=== PATIENT | female | born 1985 | race Caucasian/White ===

== ENCOUNTER 2018-11-21 06:48 | Emergency (ER) | payer OTHER ==
[~2018-11-21] VITALS: Ht 162.6 cm; Wt 102.3 kg
[~2018-11-21 06:48] MED LIST: CEPHALEXIN500 MG PO; FERR SULFATE325 MG PO; FERRAPLUS 90 PO; IBUPROFEN600 MG PO; IRON325 M1 PO; KEFLEX250 MG PO; KEFLEX500 MG PO; VITA-NATAL PO
[2018-11-21 06:50] VITALS: BP 117/90
== END 2018-11-21 07:30 ==
LOC: ED 06:48
DX: O42.92 Full-term premature rupture of membranes, unspecified as to length of time between rupture and onset of labor (principal); Z3A.38 38 weeks gestation of pregnancy

== ENCOUNTER 2019-12-01 | Emergency (ER) | payer OTHER ==
[2019-12-01] MEDS ORDERED: CLARITHROMYCIN500 MG PO (08:09)
[2019-12-01] MEDS ORDERED: TESSALON PER100 MG PO (08:09)
[2019-12-01] MEDS ORDERED: ROBITUSSIN AC10 ML PO (08:32)
[2019-12-01] MEDS ORDERED: ZPAK PO (08:32)
== END 2019-12-01 08:40 | disposition home or self-care (01) ==
DX: J20.9 Acute bronchitis, unspecified (principal)

== ENCOUNTER 2021-03-01 10:10 | Emergency (ER) | payer OTHER ==
[~2021-03-01] VITALS: Ht 162.6 cm; Wt 73.0 kg
[~2021-03-01 10:10] MED LIST changes: +CLARITHROMYCIN500 MG PO; +ROBITUSSIN AC10 ML PO; +TESSALON PER100 MG PO; +ZPAK PO
[2021-03-01 10:53] LABS: URINE BILIRUBIN - DIPSTICK NEGATIVE (NEGATIVE); URINE BLOOD DIPSTICK LARGE (NEGATIVE); URINE GLUCOSE - DIPSTICK NEGATIVE (NEGATIVE); URINE KETONE NEGATIVE (NEGATIVE); URINE LEUK ESTERASE SMALL (Negative); URINE NITRITE - DIPSTICK NEGATIVE (Negative); URINE PROTEIN - DIPSTICK TRACE mg/dL (NEG-TRACE); URINE SPECIFIC GRAVITY >=1.030; URINE UROBILINOGEN - DIPSTICK 0.2 E.U./dL (0.2)
[2021-03-01 10:54] LABS: URINE BACTERIA FEW hpf; URINE CLARITY HAZY; URINE COLOR DK. YELLOW; URINE EPITHELIAL CELLS FEW EPI/hpf (0-FEW); URINE RBC 25-50 RBC/hpf (0-5)
[2021-03-01 14:00] VITALS: BP 103/57
== END 2021-03-01 14:00 | disposition left against medical advice (07) | DRG 833 ==
LOC: ED 10:10
PROVIDERS: Emergency Medicine
DX: O46.90 Antepartum hemorrhage, unspecified, unspecified trimester (principal); Z3A.00 Weeks of gestation of pregnancy not specified; Z91.19 Patient's noncompliance with other medical treatment and regimen

== ENCOUNTER 2021-08-14 16:42 | Emergency (ER) | payer OTHER ==
[~2021-08-14] VITALS: Ht 162.6 cm; Wt 80.0 kg
[2021-08-14 17:53] LABS: URINE BILIRUBIN - DIPSTICK NEGATIVE (NEGATIVE); URINE BLOOD DIPSTICK SMALL (NEGATIVE); URINE COLOR YELLOW; URINE GLUCOSE - DIPSTICK NEGATIVE (NEGATIVE); URINE KETONE NEGATIVE (NEGATIVE); URINE PROTEIN - DIPSTICK TRACE mg/dL (NEG-TRACE); URINE SPECIFIC GRAVITY >=1.030
[2021-08-14 17:57] LABS: URINE LEUK ESTERASE SMALL (NEGATIVE); URINE NITRITE - DIPSTICK NEGATIVE (Negative)
[2021-08-14 17:58] LABS: URINE SQUAMOUS EPITHELIAL CELL FEW EPI/hpf (0-FEW); URINE TRICHOMONAS FEW hpf
[2021-08-14] MEDS ORDERED: METRONIDAZOLE500 MG PO (18:16)
[2021-08-14] MEDS ORDERED: KEFLEX500 MG PO (18:16)
[2021-08-14 18:29] VITALS: BP 115/65
== END 2021-08-14 18:29 | disposition home or self-care (01) ==
LOC: ED 16:42
PROVIDERS: Emergency Medicine
DX: O99.320 Drug use complicating pregnancy, unspecified trimester (principal); F19.10 Other psychoactive substance abuse, uncomplicated; O23.40 Unspecified infection of urinary tract in pregnancy, unspecified trimester; A59.09 Other urogenital trichomoniasis; Z3A.00 Weeks of gestation of pregnancy not specified

== ENCOUNTER 2022-04-22 02:24 | Emergency (ER) | payer OTHER ==
[~2022-04-22] VITALS: Ht 162.6 cm; Wt 68.0 kg
[~2022-04-22 02:24] MED LIST changes: +METRONIDAZOLE500 MG PO
[2022-04-22 02:48] VITALS: BP 108/67
[2022-04-22 02:56] VITALS: BP 108/67
== END 2022-04-22 02:56 | disposition left against medical advice (07) ==
LOC: ED 02:24
DX: F19.10 Other psychoactive substance abuse, uncomplicated (principal); Z91.19 Patient's noncompliance with other medical treatment and regimen; Z59.00 Homelessness unspecified

== ENCOUNTER 2022-07-03 19:30 | Emergency (ER) | payer OTHER ==
[~2022-07-03] VITALS: Ht 162.6 cm; Wt 70.0 kg
[2022-07-03 19:37] VITALS: BP 137/70
[2022-07-03 19:46] VITALS: BP 118/79
[2022-07-03] MEDS ORDERED: BACTRIM DS1 TAB PO (19:52)
[2022-07-03 19:59] VITALS: BP 118/79
== END 2022-07-03 20:10 | disposition home or self-care (01) ==
LOC: ED 19:30
DX: L02.415 Cutaneous abscess of right lower limb (principal); B95.62 Methicillin resistant Staphylococcus aureus infection as the cause of diseases classified elsewhere

== ENCOUNTER 2023-05-26 12:12 | Emergency (ER) | payer OTHER ==
[~2023-05-26] VITALS: Ht 162.6 cm; Wt 63.5 kg
[~2023-05-26 12:12] MED LIST changes: +BACTRIM DS1 TAB PO
[2023-05-26 12:23] VITALS: BP 113/72
[2023-05-26 12:30] VITALS: BP 103/66
[2023-05-26 12:45] VITALS: BP 108/60
[2023-05-26] MEDS ORDERED: MAXITROL 0.1 %1 SUS OD (12:58)
[2023-05-26 13:00] VITALS: BP 100/58
[2023-05-26 13:15] VITALS: BP 86/53
[2023-05-26 13:28] VITALS: BP 103/65
== END 2023-05-26 13:36 | disposition home or self-care (01) ==
LOC: ED 12:12
DX: T54.91XA Toxic effect of unspecified corrosive substance, accidental (unintentional), initial encounter (principal); S05.01XA Injury of conjunctiva and corneal abrasion without foreign body, right eye, initial encounter; H10.211 Acute toxic conjunctivitis, right eye; X58.XXXA Exposure to other specified factors, initial encounter

== ENCOUNTER 2023-11-04 18:15 | Emergency (ER) | payer OTHER ==
[~2023-11-04] VITALS: Ht 162.6 cm; Wt 68.0 kg
[~2023-11-04 18:15] MED LIST changes: +MAXITROL 0.1 %1 SUS OD
[2023-11-04 18:36] VITALS: BP 116/70
== END 2023-11-04 18:40 | disposition left against medical advice (07) | DRG 951 ==
LOC: ED 18:15 → LWOBS 18:40
DX: Z53.21 Procedure and treatment not carried out due to patient leaving prior to being seen by health care provider (principal)

== ENCOUNTER 2024-09-19 18:54 | Emergency (ER) | payer BC ==
[~2024-09-19] VITALS: Ht 167.6 cm; Wt 72.0 kg
[~2024-09-19 18:54] MED LIST changes: +NAPROXEN500 MG PO
[2024-09-19 18:59] VITALS: BP 109/61
[2024-09-19] MEDS ORDERED: ACETAMINOPHEN 500 MG TAB PO ONE (19:10)
[2024-09-19 19:34] LABS: BASO% 0.2 % (0-3); HEMOGLOBIN 7.8 g/dl (12.0-16.0); IMMATURE GRANULOCYTES 0.2 % (0.0-5.0); LYMPH% 9.6 % (15-41); MEAN CORPUSCULAR HGB 17.6 pG CALC (26.0-32.0); MEAN CORPUSCULAR HGB CONC 28.9 g/dL CAL (32.0-36.0); MONO% 8.7 % (2-13); NEUT# 3.72 thou/uL (2.00-7.15); NEUT% 81.3 % (42-76); RED BLOOD COUNT 4.43 mill/uL (4.20-5.60); RED CELL DISTRI WIDTH 18.3 % (11.5-15.5)
[2024-09-19 19:36] LABS: MEAN CELL VOLUME 60.9 fL CALC (80.0-100.0)
[2024-09-19 20:00] VITALS: BP 110/61
[2024-09-19] MEDS ORDERED: TAM75CAP PO (21:11)
[2024-09-19] MEDS ORDERED: OSELTAMIVIR PHOSPHATE 75 MG/TAB CAP PO ONE (21:15)
[2024-09-19 21:30] VITALS: BP 110/61
== END 2024-09-19 21:30 | disposition home or self-care (01) | DRG 195 ==
LOC: ED 18:54
PROVIDERS: Family Medicine
DX: J10.1 Influenza due to other identified influenza virus with other respiratory manifestations (principal); Z20.822 Contact with and (suspected) exposure to COVID-19